=== PATIENT | male | born 1990 | race Caucasian/White ===

== ENCOUNTER 2017-05-21 11:32 | Inpatient (IN) | payer OTHER ==
[~2017-05-21] VITALS: Ht 182.9 cm; Wt 154.0 kg
[~2017-05-21 11:32] MED LIST: DOXY100 PO; HYDACE5 PO; PENVK500 PO
[2017-05-21] MEDS ORDERED: ESCI5 PO (15:10)
[2017-05-21] MEDS ORDERED: Omeprazole20 M1 PO (15:29)
[2017-05-21] MEDS ORDERED: ALBU90OI6 INH (15:29)
[2017-05-22 05:58] LABS: BASOPHILS ABSOLUTE AUTO 0.02 K/mm3 (0.00-0.23); BASOPHILS PERCENT AUTO 0 % (0-2); EOSINOPHILS PERCENT AUTO 0 % (0-6); Hematocrit 45.9 % (37.0-53.0); Hemoglobin 15.4 g/dL (13.5-17.5); IMMATURE GRAN ABSOLUTE AUTO 0.09 K/mm3 (0.00-0.10); IMMATURE GRAN PERCENT AUTO 1 % (0-1); LYMPHOCYTES ABSOLUTE AUTO 1.43 K/mm3 (0.84-5.20); LYMPHOCYTES PERCENT AUTO 13 % (21-46); MONOCYTES ABSOLUTE AUTO 0.76 K/mm3 (0.16-1.47); MONOCYTES PERCENT AUTO 7 % (4-13); Mean Corpuscular HGB 29.9 pg (26.0-34.0); Mean Corpuscular HGB Conc 33.6 g/dL (31.5-36.5); Mean Corpuscular Volume 89 fL (80-100); Mean Platelet Volume 9.7 fL (9.1-12.4); NEUTROPHILS ABSOLUTE AUTO 8.34 K/mm3 (1.96-9.15); NEUTROPHILS PERCENT AUTO 79 % (41-73); Platelet Count 358 K/mm3 (150-400); RDW Coefficient Variation 12.7 % (11.7-14.2); RDW Standard Deviation 41.4 fL (35.1-46.3); Red Blood Cell Count 5.15 M/mm3 (4.30-5.90); White Blood Cell Count 10.64 K/mm3 (4.00-11.30)
[2017-05-22 06:12] LABS: Albumin, Blood 2.8 g/dL (3.4-5.0); Anion Gap 8 mmol/L (6-16); Blood Urea Nitrogen 13 mg/dL (8-24); Bun/Creatinine Ratio 14.6 (12.0-20.0); CO2, Blood 24 mmol/L (21-32); Calcium, Blood 8.1 mg/dL (8.5-10.1); Chloride, Blood 107 mmol/L (98-108); Creatinine, Blood 0.89 mg/dL (0.60-1.20); Glomerular Filtration Rate >60 (60-); Glucose, Blood 135 mg/dL (70-99); Phosphorus, Blood 3.2 mg/dL (2.5-4.9); Potassium, Blood 4.2 mmol/L (3.5-5.5); Sodium, Blood 139 mmol/L (136-145)
[2017-05-22 08:52] LABS: Source, Urine Clean Catch
[2017-05-22 09:04] LABS: Bilirubin, Urine Neg (Neg); Blood, Urine Neg (Neg); Glucose Qualitative, Urine Neg (Neg); Ketones, Urine 1+ (Neg); Leukocyte Esterase, Urine Neg (Neg); Nitrite, Urine Neg (Neg); Protein, Urine Neg (Neg); Specific Gravity, Urine 1.025 (1.003-1.022); Urobilinogen, Urine NORM (Normal)
[2017-05-22 09:19] LABS: Appearance, Urine Clear (Clear); Color, Urine Yellow (P-Yellow)
[2017-05-23] MEDS ORDERED: DIPH50 PO (12:02)
[2017-05-23] MEDS ORDERED: FAMO20 PO (12:02)
[2017-05-23] MEDS ORDERED: PRED10 PO (12:05)
== END 2017-05-23 12:45 | disposition home or self-care (01) | DRG 916 ==
LOC: ER 11:32 → ERHOLD 11:33 → PCU 11:33
PROVIDERS: Family Medicine; Internal Medicine
DX: T78.3XXA Angioneurotic edema, initial encounter (principal); T78.1XXA Other adverse food reactions, not elsewhere classified, initial encounter; G47.33 Obstructive sleep apnea (adult) (pediatric); F41.9 Anxiety disorder, unspecified; E66.9 Obesity, unspecified; J32.9 Chronic sinusitis, unspecified
CPT/HCPCS: 36415; 80069; 81003; 85025; 94660; 94762; 96372; 99285; J0171; J1650; J2930; J7030; Q0163

== ENCOUNTER → 2020-03-08 | Outpatient (CLI) | payer BC ==
[~2020-03-08] MED LIST changes: +ALBU90OI6 INH; +DIPH50 PO; +ESCI5 PO; +FAMO20 PO; +Omeprazole20 M1 PO; +PRED10 PO
[2020-03-09 19:49] LABS: U Amphetamine Screen Not Detected; U Barbituate Screen Not Detected; U Benzodiazapine Screen Not Detected; U Buprenorphine Screen Not Detected; U Cannabinoids Screen DETECTED; U Cocaine Screen Not Detected; U Methadone Screen Not Detected; U Methamphetamine Screen Not Detected; U Opiates Screen Not Detected; U Oxycodone Screen Not Detected; U Phencyclidine Screen Not Detected; U Propoxyphene Screen Not Detected
== END | disposition home or self-care (01) ==
LOC: LAB EV 17:06 → LAB SHORT 17:06
PROVIDERS: Nurse Practitioner Psychiatric/Mental Health
DX: F32.9 Major depressive disorder, single episode, unspecified (principal)

== ENCOUNTER → 2021-10-25 | Outpatient (CLI) | payer BC ==
[2021-10-25 17:11] LABS: BASOPHILS ABSOLUTE AUTO 0.03 K/mm3 (0.00-0.23); BASOPHILS PERCENT AUTO 0 % (0-2); EOSINOPHILS PERCENT AUTO 1 % (0-6); Hemoglobin 13.9 g/dL (13.5-17.5); IMMATURE GRAN ABSOLUTE AUTO 0.08 K/mm3 (0.00-0.10); IMMATURE GRAN PERCENT AUTO 1 % (0-1); LYMPHOCYTES ABSOLUTE AUTO 1.58 K/mm3 (0.84-5.20); LYMPHOCYTES PERCENT AUTO 11 % (21-46); MONOCYTES ABSOLUTE AUTO 1.06 K/mm3 (0.16-1.47); MONOCYTES PERCENT AUTO 8 % (4-13); Mean Corpuscular HGB 30.7 pg (26.0-34.0); Mean Corpuscular HGB Conc 33.9 g/dL (31.5-36.5); Mean Corpuscular Volume 91 fL (80-100); Mean Platelet Volume 9.3 fL (9.1-12.4); NEUTROPHILS PERCENT AUTO 79 % (41-73); Platelet Count 308 K/mm3 (150-400); RDW Coefficient Variation 12.7 % (11.7-14.2); RDW Standard Deviation 41.9 fL (35.1-46.3); Red Blood Cell Count 4.53 M/mm3 (4.30-5.90); White Blood Cell Count 13.85 K/mm3 (4.00-11.30)
[2021-10-25 17:31] LABS: Albumin, Blood 3.2 g/dL (3.4-5.0); Albumin/Globulin Ratio 0.7 (0.8-1.8); Bilirubin, Total 0.5 mg/dL (0.1-1.0); Bun/Creatinine Ratio 11.1 (12.0-20.0); Calcium, Blood 8.9 mg/dL (8.5-10.1); Creatinine, Blood 1.08 mg/dL (0.60-1.20); Globulin, Blood 4.6 g/dL (2.2-4.0); Potassium, Blood 3.2 mmol/L (3.5-5.5); Total Protein, Blood 7.8 g/dL (6.4-8.2)
== END | disposition home or self-care (01) ==
LOC: LAB SHORT 17:05
PROVIDERS: Physician Assistant
DX: R10.9 Unspecified abdominal pain (principal)
CPT/HCPCS: 80053; 83690; 85025

== ENCOUNTER 2023-01-02 20:01 | Emergency (ER) | payer BC ==
[~2023-01-02] VITALS: Ht 182.9 cm; Wt 138.3 kg
[~2023-01-02 20:01] MED LIST changes: +ACET325 PO; +AMOCLA875 PO; +K-Dur20 MEQ PO; +MIRALAX17 GM PO; +VISBIOME 112.51 EACH PO
[2023-01-02 20:14] VITALS: BP 144/87
[2023-01-02] MEDS ORDERED: DESVENLAFAXINE50 M3 PO (21:05)
[2023-01-02] MEDS ORDERED: MODAFINIL100 M4 PO (21:05)
== END 2023-01-03 | disposition home or self-care (01) ==
LOC: ER 20:01
DX: L02.511 Cutaneous abscess of right hand (principal); S61.431A Puncture wound without foreign body of right hand, initial encounter; I10 Essential (primary) hypertension; Z23 Encounter for immunization; Z91.013 Allergy to seafood; Z88.1 Allergy status to other antibiotic agents; Z88.2 Allergy status to sulfonamides; Z79.899 Other long term (current) drug therapy; W45.8XXA Other foreign body or object entering through skin, initial encounter
CPT/HCPCS: 73120; 90471; 90714; 99282

== ENCOUNTER → 2025-01-01 | Outpatient (CLI) | payer BC ==
[~2025-01-01] MED LIST changes: +DESVENLAFAXINE50 M3 PO; +MODAFINIL100 M4 PO
== END ==
LOC: LAB 16:50 → LAB SHORT 16:50
DX: N39.0 Urinary tract infection, site not specified (principal); Z13.1 Encounter for screening for diabetes mellitus
CPT/HCPCS: 87086